=== PATIENT | male | born 1960 | race Caucasian/White ===

== ENCOUNTER 2016-08-18 14:33 | Emergency (ER) | payer SELFPAY ==
--- NOTE | ~2016-08-18 | ER ---
PATIENT'S NAME: SANDRA MCDOWELL [facility] AGE: 56 Y [address] ROOM: [place] [id number] LOCATION: [facility] ADMIT DATE: 08/18/2016 ER/Outpatient Report DISCHARGE DATE: 08/18/2016 FAMILY PHYSICIAN: PHYSICIAN, NO ATTENDING PHYSICIAN: Ivan Sharpe Time of Arrival: 1434 hours. Time of Evaluation: 1434 hours. CHIEF COMPLAINT: Confusion. HISTORY OF PRESENT ILLNESS: The patient is a 56-year-old male who presents to the emergency department today with a chief complaint of confusion. The patient was bucked off a horse about 4-1/2 or 5 hours prior to arrival. He went over the front, he kind of landed on his back and then hit his head. His did witness this and reports that he did not lose any consciousness. However, she was watching him, he was confused and became more confused, so she brought him in for further evaluation. The only other complaint is his right ankle with sharp pain, currently 2/10 in severity. It is sharp. It is worse with movement. does report that it appears to be short term memory loss. PAST MEDICAL HISTORY: None. PAST SURGICAL HISTORY: Brain injury with blood clot removal. SOCIAL HISTORY: The patient denies any tobacco, alcohol, or illicit drug use. ALLERGIES: NOVOCAIN. MEDICATIONS: None. PRIMARY CARE DOCTOR: None. REVIEW OF SYSTEMS: All systems are reviewed by myself and negative with the exception of those discussed in HPI and past medical history. PATIENT'S NAME: SANDRA MCDOWELL [facility] AGE: 56 Y [address] ROOM: [place] [id number] LOCATION: [facility] ADMIT DATE: 08/18/2016 ER/Outpatient Report DISCHARGE DATE: 08/18/2016 FAMILY PHYSICIAN: PHYSICIAN, NO ATTENDING PHYSICIAN: Ivan Sharpe PHYSICAL EXAMINATION: VITAL SIGNS: Weight 76.4 kg, blood pressure 117/69, pulse 73, respiratory rate 17, temperature 98, oxygen saturation 96% on room air. GENERAL: The patient is a 56-year-old male, appears stated age, in no acute distress. HEENT: Normocephalic, atraumatic. Pupils are equal, round, and reactive to light. Extraocular motions are intact. Nares are patent bilaterally. TMs are clear. Oropharynx is clear. No Abbasi sign. No raccoon eyes. NECK: Supple. There is no nuchal rigidity. No midline tenderness to palpation. No step-offs or deformities. CARDIOVASCULAR: Regular rate and rhythm. No murmurs, rubs, or gallops. LUNGS: Clear to auscultation bilaterally. No wheezes, rales, or rhonchi. ABDOMEN: Soft, nontender, and nondistended. No rebound, rigidity, or guarding. MUSCULOSKELETAL: The patient moves all 4 extremities. He does have some soft tissue swelling noted on the right medial aspect of his ankle. There is minimal tenderness to palpation. His lumbar and thoracic spine are without tenderness to palpation. SKIN: The patient does have swelling, erythema and ecchymosis noted to the right lower extremity. He also has an abrasion to the right upper extremity. IMPRESSION: 1. Concussion. 2. Bucked off a horse. 3. Right ankle swelling. 4. Initial visit. EMERGENCY DEPARTMENT COURSE: The patient was brought back to the examination room. Seen and evaluated by myself. Laboratory analysis and imaging are obtained as described above. I have discussed results with the patient and his who are at the bedside. The patient does have a normal neurological exam at this time. He is able to ambulate on this foot. I have discussed head injury precautions with the patient and family. I have discussed return to care instructions including severe headache, vomiting or any other concerns to the emergency department as soon as possible. The patient is agreeable and is agreeable. They are without further questions. DISPOSITION: The patient discharged home in good condition. IVAN SHARPE DO PATIENT'S NAME: SANDRA MCDOWELL [facility] AGE: 56 Y [address] ROOM: [place], [place] [address] LOCATION: [facility] ADMIT DATE: 08/18/2016 ER/Outpatient Report DISCHARGE DATE: 08/18/2016 FAMILY PHYSICIAN: PHYSICIAN, NO ATTENDING PHYSICIAN: Ivan Sharpe/danna /[id number] d: 08/19/16 0024 t: 08/19/16 1439, OUTPATIENT REPORT
== END 2016-08-18 15:59 | disposition disaster alternative care site (69) ==
LOC: GACC 14:33
DX: S06.0X0A Concussion without loss of consciousness, initial encounter (principal); M25.471 Effusion, right ankle; Z87.820 Personal history of traumatic brain injury; Z88.4 Allergy status to anesthetic agent; W55.12XA Struck by horse, initial encounter; Y93.52 Activity, horseback riding